=== PATIENT | female | born 1950 | race Caucasian/White ===

== ENCOUNTER 2016-11-02 19:30 | Emergency (ER) | payer OTHER ==
[2016-11-02 20:27] VITALS: BP 117/77
[2016-11-02] MEDS ORDERED: ValACYclovir (*) 1 GM TAB PO SCH (21:00)
--- NOTE | 2016-11-02 21:59 | ED ---
Kinsey Pavon Alfonso, scribed for Jude Brito MD on 11/02/16 at 2012 . Skin Complaint - HPI Summary HPI Summary: This patient is a 65 year old female presenting to [facility] for a rash on her left buttock since earlier today. The rash is characterized as "hot, nervy, and spreading." She has had similar rashes before on other locations of her body. Sx aggravated and alleviated by nothing. The patient thinks the rash is shingles based on previous diagnoses. PMHx of Lyme disease two years ago. - History of Current Complaint Chief Complaint: EDRashSkinAbscess Time Seen by Provider: 11/02/16 19:53 Stated Complaint: RASH Hx Obtained From: Patient Onset/Duration: Started Hours Ago - Earlier today, Still Present Skin Exposure Onset/Duration: Hours Ago - Earlier today Timing: Constant Onset Severity: Mild Current Severity: Mild Skin Location: Discrete - left buttock Aggravating Symptom(s): Nothing Alleviating Symptom(s): Nothing Associated Signs & Symptoms: Rash - "hot, nervy, and spreading." - Allergy/Home Medications Allergies/Adverse Reactions: Allergies Allergy/AdvReac Type Severity Reaction Status Date / Time No Known Allergies Allergy Verified 12/22/14 16:50 PMH/Surg Hx/FS Hx/Imm Hx Sensory History: Denies: Hx Deafness Opthamlomology History: Denies: Hx Legally Blind Infectious Disease History: Denies: Traveled Outside the [place] in Last 30 Days - Family History Known Family History: Positive: Diabetes - Father - Social History Alcohol Use: None Substance Use Type: Reports: None Smoking Status (MU): Never Smoked Tobacco Review of Systems Constitutional: Negative Eyes: Negative ENT: Negative Cardiovascular: Negative Respiratory: Negative Gastrointestinal: Negative Genitourinary: Negative Musculoskeletal: Negative Positive: Rash - "hot, nervy, and spreading" rash on her left buttock Neurological: Negative Psychological: Normal All Other Systems Reviewed And Are Negative: Yes Physical Exam Triage Information Reviewed: Yes Vital Signs On Initial Exam: Initial Vitals Temp Pulse Resp BP Pulse Ox 98.7 F 86 16 117/77 100 11/02/16 20:19 11/02/16 20:19 11/02/16 20:19 11/02/16 20:19 11/02/16 20:19 Vital Signs Reviewed: Yes Appearance: Positive: Well-Appearing, No Pain Distress Skin: Positive: Other - Small area of vesicular rash on her left buttock. Head/Face: Positive: Normal Head/Face Inspection Eyes: Positive: Normal ENT: Positive: Normal ENT inspection Neck: Positive: Supple, Nontender Respiratory/Lung Sounds: Positive: Clear to Auscultation, Breath Sounds Present Cardiovascular: Positive: RRR Abdomen Description: Positive: Nontender, Soft Bowel Sounds: Positive: Present Musculoskeletal: Positive: Normal Neurological: Positive: Normal, Sensory/Motor Intact, Alert, Oriented to Person Place, Time, CN Intact II-III Psychiatric: Positive: Normal Diagnostics - Vital Signs Vital Signs Temp Pulse Resp BP Pulse Ox 11/02/16 20:29 98.7 F 86 16 117/77 11/02/16 20:19 98.7 F 86 16 117/77 100 - Laboratory Lab Statement: Any lab studies that have been ordered have been reviewed, and results considered in the medical decision making process. Course/Dx - Course Course Of Treatment: Ms. Maria has had several flair ups of shingles and believes that she is having one now. She has pain in the skin of her left buttock and has a small area of vesicular rash medially. This is certainly consistent with shingles and I will treat her accordingly. - Diagnoses Provider Diagnoses: Shingles outbreak Discharge - Discharge Plan Condition: Stable Disposition: HOME Prescriptions: ValACYclovir (*) [Valtrex 1 GM(*)] 1 gm PO TID #21 tab Patient Education Materials: Shingles (ED), Valacyclovir (By mouth) Referrals: Non Staff,Doctor [Primary Care Provider] - [facility] [Provider Group] - 3 Days The documentation as recorded by the Kinsey portillo Alfonso accurately reflects the service I personally performed and the decisions made by me, Jude Brito MD.
== END 2016-11-02 20:29 | disposition home or self-care (01) ==
LOC: ED 19:30
DX: B02.9 Zoster without complications (principal)
CPT/HCPCS: 99282

== ENCOUNTER 2016-11-08 07:30 | Observation (INO) | payer OTHER ==
[2016-11-08 08:22] LABS: Hematocrit 39 % (35-47); Hemoglobin 13.2 g/dl (12.0-16.0); Mean Corpuscular HGB Conc 34 g/dl (31-36); Mean Corpuscular Hemoglobin 29 pg (27-31); Mean Corpuscular Volume 84 fL (80-97); Mean Platelet Volume 8 um3 (7.4-10.4); Red Blood Count 4.63 10^6/ul (4.0-5.4); Red Cell Distribution Width 13 % (10.5-15); White Blood Count 5.9 10^3/ul (3.5-10.8)
[2016-11-08 08:33] LABS: Ammonia 32 mol/L (16-53)
[2016-11-08 08:35] LABS: ALT 26 U/L (7-52); AST 23 U/L (13-39); Albumin 4.2 g/dL (3.2-5.2); Alkaline Phosphatase 50 U/L (34-104); Anion Gap 7 mmol/L (2-11); BUN/Creatinine Ratio 15.3 (8-20); Blood Urea Nitrogen 13 mg/dL (6-24); C Reactive Protein < 1.00 mg/L (< 5.00); CO2 Carbon Dioxide 26 mmol/L (22-32); Calcium 9.5 mg/dL (8.6-10.3); Chloride 102 mmol/L (101-111); Creatine Kinase 84 U/L (10-223); EGFR African American 86.9 (>60); EGFR Non-African American 67.5 (>60); Globulin 2.6 g/dL (2-4); Glucose 103 mg/dL (70-100); Lipase 21 U/L (11.0-82.0); Magnesium 2.1 mg/dL (1.9-2.7); Potassium 3.8 mmol/L (3.5-5.0); Sodium 135 mmol/L (133-145); Total Protein 6.8 g/dL (6.4-8.9)
[2016-11-08 08:39] LABS: B Type Natriuretic Peptide 16 pg/mL
[2016-11-08] MEDS: NS 0.9% 1000 ML* 1,000 ML IV SCH ×2 (08:45→17:57)
[2016-11-08 08:49] LABS: Acetaminophen < 15 mcg/mL; Alcohol < 10 mg/dL (<10)
[2016-11-08 08:57] LABS: TSH (Thyroid Stimulating Horm) 7.01 mcIU/mL (0.34-5.60)
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
[2016-11-08] MEDS ORDERED: Iohexol 350* (CONTRAST) 500 ML MDV IV ONE (10:09)
[2016-11-08 10:48] LABS: Urine Bacteria Absent (Absent); Urine Bilirubin Negative (Negative); Urine Glucose Negative (Negative); Urine Nitrite Positive (Negative)
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
[2016-11-08] MEDS ORDERED: Acetaminophen TAB* 325 MG PO PRN (11:31)
[2016-11-08] MEDS ORDERED: Ondansetron INJ* 2 MG/ML VIAL IV PRN (11:31)
[2016-11-08] MEDS ORDERED: Aspirin Low Dose CHEW TAB* 81 MG PO ONE (11:31)
[2016-11-08] MEDS ORDERED: cefTRIAXone VIAL(*) 1,000 MG in NS 0.9% 50 ML* 50 ML IVPB SCH (12:00)
[2016-11-08] MEDS: HYDROcodone/ACETAMIN 5-325 MG* 1 TAB PO PRN ×2 (13:28→19:51)
[2016-11-08] MEDS: Lidocaine PATCH 5%* 1 PATCH TRANSDERM SCH (13:30)
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
[2016-11-08] MEDS: Heparin VIAL(*) 5000 UNITS/ML VIAL (FIVE THOUSAND) SUBCUT SCH ×2 (16:15→22:10)
[2016-11-08] MEDS: ValACYclovir (*) 1 GM TAB PO SCH ×2 (16:18→22:10)
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
--- NOTE | 2016-11-08 20:04 | RAD ---
Indication: Transient ischemic attack. Image sequences: Sagittal and axial T1, axial T2, FLAIR, diffusion and susceptibility weighted images of the brain were obtained. Ventricular structures are midline. No midline shift is noted. The extra-axial spaces are unremarkable. There is no evidence of restriction of diffusion. The FLAIR images demonstrates punctate areas of deep white matter changes which may represent microvascular change. This is nonspecific. Posterior fossa and brainstem demonstrates no abnormal signal. Cerebellopontine angle is otherwise unremarkable. No evidence of susceptibility artifact is noted. Mastoid air cells demonstrates fluid in the right mastoid air cells. Paranasal sinuses are otherwise clear. IMPRESSION: CHRONIC ISCHEMIC WHITE MATTER CHANGE IS NOTED. FINDINGS CONSISTENT WITH RIGHT-SIDED MASTOID SINUSITIS. NO ACUTE STROKE IS NOTED.
[2016-11-08] MEDS ORDERED: Lidocaine Patch REMOVE* 1 NOTE MISC SCH (21:00)
[2016-11-09] MEDS: HYDROcodone/ACETAMIN 5-325 MG* 1 TAB PO PRN (01:20)
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
[2016-11-09] MEDS: NS 0.9% 1000 ML* 1,000 ML IV SCH (03:15)
[2016-11-09] MEDS: Heparin VIAL(*) 5000 UNITS/ML VIAL (FIVE THOUSAND) SUBCUT SCH ×2 (05:47→13:39)
[2016-11-09 06:17] LABS: Hematocrit 38 % (35-47); Hemoglobin 12.4 g/dl (12.0-16.0); Mean Corpuscular HGB Conc 33 g/dl (31-36); Mean Corpuscular Hemoglobin 28 pg (27-31); Mean Corpuscular Volume 85 fL (80-97); Mean Platelet Volume 8 um3 (7.4-10.4); Red Cell Distribution Width 13 % (10.5-15); White Blood Count 5.3 10^3/ul (3.5-10.8)
[2016-11-09 06:31] LABS: BUN/Creatinine Ratio 10.8 (8-20); Calcium 8.5 mg/dL (8.6-10.3); EGFR African American 101.9 (>60); EGFR Non-African American 79.3 (>60); HDL Cholesterol 75.3 mg/dL; Potassium 3.6 mmol/L (3.5-5.0)
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
[2016-11-09] MEDS ORDERED: [UNRECOGNIZED DRUG - OTHER] PO SCH (09:00)
[2016-11-09] MEDS ORDERED: Aspirin Low Dose CHEW TAB* 81 MG PO SCH (09:00)
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
[2016-11-09] MEDS: ValACYclovir (*) 1 GM TAB PO SCH ×2 (09:49→13:39)
[2016-11-09] MEDS: tiZANidine TAB* 2 MG PO SCH ×2 (09:49→13:39)
[2016-11-09] MEDS: Lidocaine PATCH 5%* 1 PATCH TRANSDERM SCH (09:50)
[2016-11-09] MEDS: HYDROcodone/ACETAMIN 5-325 MG* 1 TAB PO SCH ×2 (09:50→13:39)
[2016-11-09 11:55] VITALS: BP 117/88
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
== END 2016-11-09 14:17 | disposition home or self-care (01) ==
LOC: ED 07:30 → MEDTELE 10:01
PROVIDERS: ADMIT Internal Medicine; ATTEND Internal Medicine
DX: R55 Syncope and collapse (principal); M54.5 Low back pain; M62.830 Muscle spasm of back; V48.0XXA Car driver injured in noncollision transport accident in nontraffic accident, initial encounter; Y92.410 Unspecified street and highway as the place of occurrence of the external cause; H53.2 Diplopia; R26.89 Other abnormalities of gait and mobility; E06.3 Autoimmune thyroiditis; B02.9 Zoster without complications; M25.551 Pain in right hip; I48.91 Unspecified atrial fibrillation; M48.56XA Collapsed vertebra, not elsewhere classified, lumbar region, initial encounter for fracture; I51.7 Cardiomegaly; Z79.899 Other long term (current) drug therapy; Z88.5 Allergy status to narcotic agent
CPT/HCPCS: 36415; 70450; 70496; 70498; 70551; 71250; 72125; 72131; 74176; 80048; 80053; 80061; 80320; 80329; 81003; 81015; 82140; 82550; 82553; 83036; 83605; 83690; 83735; 83880; 84443; 84484; 85025; 85610; 85730; 86140; 87077; 87086; 87186; 93005; 93306; 94760; 95819; 96361; 96365; 96372; 99284; A9270-GY; G0378; G0480; G8978-GP-CJ; G8979-GP-CI; J0696; J1644; Q9967

== ENCOUNTER 2018-12-24 06:36 | Day surgery (SDC) | payer MEDICARE ==
[~2018-12-24 06:36] MED LIST: Acetaminophen TAB* 325 MG PO PRN; Buffered Lidocaine 1% SYRIN* 1 ML/SYRINGE INTRADERM ONE
[2018-12-24] MEDS ORDERED: Midazolam* 1 MG/ML 5 ML VIAL (5 MG) ONE (07:47)
[2018-12-24 09:09] VITALS: BP 121/89
--- NOTE | 2018-12-24 09:55 | OP ---
OPERATIVE NOTE: DATE OF OPERATION: 12/24/18 - [facility] DATE OF : 54 SURGEON: Elgin Washington M.D. PREOPERATIVE DIAGNOSIS: Cataract, right eye. POSTOPERATIVE DIAGNOSIS: Cataract, right eye. OPERATIVE PROCEDURE: Extracapsular cataract extraction with intraocular lens implant right eye. PROCEDURE: The patient was brought to the operating room after being given 1/2 % Alcaine with epinephrine drops in the preoperative area. The eye was prepped and draped in the usual sterile fashion. Sterile drape and eyelid speculum were placed. Again, topical 1/2% Alcaine with epinephrine was given. A paracentesis incision was made at the 9 o'clock position with the No.75 blade. Clear cornea incision 2.2 x 2.2-mm was created at the 12 o'clock position starting at the anterior limbus using the 2.2-mm keratome. The anterior chamber was irrigated with 0.4 mL of 1% non-preservative intracameral lidocaine and filled with DisCoVisc. A capsulorrhexis was completed using the cystotome and the Utrata forceps. Hydrodissection was performed with balanced salt solution. The lens nucleus was removed with the Phacoemulsification handpiece without incident. Cortex was removed with the irrigation-aspiration handpiece. The capsular bag was re-inflated using DisCoVisc and an [id number] implant was inserted with the shooter, oriented to the 86 degree meridian. Horizontal reference morley were made with the patient in the preoperative area. All measurements were confirmed with ORA. Of note, there was some intentional under correction at the level of astigmatism due to mediocre ORA readings and the pterygium being present, which typically will over estimate the amount of astigmatism. The irrigation-aspiration handpiece was used to remove all residual DisCoVisc. The eye was refilled with balanced salt solution and the wound checked and found to be watertight. Topical Maxitrol drops were given. [id number]/[facility] #: [id number] [facility]
[2018-12-24] MEDS ORDERED: Cyclopentolate 1% OPTH.SOL* 2 ML BTL ONE (10:02)
[2018-12-24] MEDS ORDERED: Povidone Iodine 5% OPTH* 30 ML BTL ONE (10:02)
[2018-12-24] MEDS ORDERED: Neomycin/Polymy/Dex OPTH.SUSP* MAXITROL 0.1% 5 ML ONE (10:02)
[2018-12-24] MEDS ORDERED: Lidocaine 2% w/ EPI 1:200,000* 20 ML SDV VIAL ONE (10:02)
[2018-12-24] MEDS ORDERED: Phenylephrine OPHTH SOL 2.5%* 2 ML ONE (10:02)
[2018-12-24] MEDS ORDERED: Lidocaine 1% MPF ** 5 ML VIAL ONE (10:02)
[2018-12-24] MEDS ORDERED: acetaZOLAMIDE TAB* 250 MG ONE (10:02)
[2018-12-24] MEDS ORDERED: Proparacaine 0.5% OPHTH.SOL* 15 ML BTL ONE (10:03)
[2018-12-24] MEDS ORDERED: Ketorolac 0.5% OPHTH (NF) 0.5 % 5 ML BTL ONE (10:03)
== END 2018-12-24 09:20 | disposition home or self-care (01) ==
LOC: OREAST 06:36
PROVIDERS: ATTEND Specialist
DX: H25.11 Age-related nuclear cataract, right eye (principal); H11.011 Amyloid pterygium of right eye; H35.3132 Nonexudative age-related macular degeneration, bilateral, intermediate dry stage; Z96.1 Presence of intraocular lens
CPT/HCPCS: A9270-GY; J2250; V2787